=== PATIENT | male | born 1980 | race Caucasian/White ===

== ENCOUNTER 2018-03-22 23:59 | Emergency (ER) | payer SELFPAY ==
[2018-03-23 00:18] VITALS: BP 121/67; PULSE 86; TEMP 97.9; BMI 25.8
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
[2018-03-23] MEDS ORDERED: HEMOQUE CONTROL SOLUTION ONE (01:21)
[2018-03-23] MEDS ORDERED: HEMOQUE TEST 1 EACH EACH ONE (01:21)
== END 2018-03-23 04:35 | disposition home or self-care (01) ==
LOC: JER 23:59
DX: F10.120 Alcohol abuse with intoxication, uncomplicated (principal); Y90.8 Blood alcohol level of 240 mg/100 ml or more
CPT/HCPCS: 36415; 80307; 82962; 99281-25